=== PATIENT | female | born 1985 | race Caucasian/White ===

== ENCOUNTER 2017-04-24 16:59 | Emergency (ER) | payer BC ==
[2017-04-24] MEDS ORDERED: Ondansetron HCl/PF 4 MG/2 ML Vial ONE (17:48)
[2017-04-24] MEDS ORDERED: Famotidine/PF 20 mg/2ml Vial ONE (17:48)
[2017-04-24 18:21] LABS: Anion Gap 17 mmol/L (10-20); BUN (Urea Nitrogen) 4 mg/dL (7.0-18.7); Calc. Creatinine Clearance 0 mL/min (70-130); Calcium 9.3 mg/dL (7.8-10.44); Carbon Dioxide 20 mmol/L (22-29); Chloride 104 mmol/L (98-107); Estimated GFR-MDRD Greater than 90; Glucose 88 mg/dL (70-105); Sodium 138 mmol/L (136-145)
[2017-04-24 18:25] LABS: Potassium 2.6 mmol/L (3.5-5.1)
[2017-04-24] MEDS ORDERED: Potassium Chloride 20 MEQ TAB ONE (18:50)
[2017-04-24] MEDS ORDERED: Acetaminophen 500 MG TAB ONE (18:50)
== END 2017-04-24 19:00 | disposition home or self-care (01) ==
LOC: ERS 16:59
DX: E86.0 Dehydration (principal); B34.9 Viral infection, unspecified; E87.6 Hypokalemia; K21.9 Gastro-esophageal reflux disease without esophagitis; F41.9 Anxiety disorder, unspecified; F41.0 Panic disorder [episodic paroxysmal anxiety]; Z79.899 Other long term (current) drug therapy
CPT/HCPCS: 36415; 80048; 87804; 96361; 96374; 96375; J2405; S0028

== ENCOUNTER 2023-09-23 05:06 | Emergency (ER) | payer BC, OTHER ==
[2023-09-23] MEDS ORDERED: Ondansetron PF 4 MG/2 ML Vial ONE (07:22)
[2023-09-23] MEDS ORDERED: Ketorolac Tromethamine 30 MG (1 mL) VIAL ONE (07:22)
[2023-09-23] MEDS ORDERED: Morphine 4 MG/ML VIAL ONE (07:22)
== END 2023-09-23 08:25 | disposition home or self-care (01) ==
LOC: ERS 05:06
DX: M26.601 Right temporomandibular joint disorder, unspecified (principal)
CPT/HCPCS: 96374; 96375; J1885; J2270; J2405